=== PATIENT | female | born 1985 | race Caucasian/White ===

== ENCOUNTER 2017-11-28 14:12 | Emergency (ER) | payer OTHER, MEDICAID, SELFPAY ==
[2017-11-28 14:12] VITALS: BP 135/100; PULSE 77; RESP 18; TEMP 36.3; O2SAT 97; BMI 34.0
--- NOTE | 2017-11-28 14:34 | ED.ABDPAIN ---
HPI - Abdominal Pain <SUSANA Lawson - Last Filed: 11/28/17 22:08> General Chief Complaint: Abdominal Pain Stated Complaint: ABDOMINAL PAIN Time Seen by Provider: 11/28/17 14:34 History of Present Illness HPI narrative: 32-year-old female here for complaint of having epigastric pain that started since last night. She has a history of cholecystectomy. She denies any trauma to the epigastric area. She states she had 2 episodes of vomiting last night positive nausea today. No fevers no chills. She denies any urinary symptoms. Last bowel movement was earlier today and was normal. Pain is limited to the epigastric area. She denies any other concerns or complaints. She does state that eating has made the pain worse. MD complaint: abdominal pain Related Data Home Medications Medication Instructions Recorded Confirmed venlafaxine 225 mg PO QDAY #0 12/01/16 11/28/17 doxepin 25 mg PO HSP #0 09/01/17 11/28/17 levothyroxine 25 mcg PO QAM #0 09/01/17 11/28/17 oxcarbazepine 300 mg PO BID #0 09/01/17 11/28/17 quetiapine [Seroquel] 100 mg PO DAILY 11/28/17 11/28/17 Previous Rx's Medication Instructions Recorded ciprofloxacin HCl 500 mg PO BID #14 tab 11/28/17 hydrocodone-acetaminophen 1 tab PO Q4-6H PRN #10 tab 11/28/17 metronidazole 250 mg PO TID #21 tab 11/28/17 ondansetron 4 mg PO Q6H PRN #10 tab 11/28/17 Allergies Allergy/AdvReac Type Severity Reaction Status Date / Time Penicillins [PENICILLINS] Allergy Unknown Verified 11/28/17 14:35 lorazepam [From ATIVAN] AdvReac Unknown AGITATION Verified 11/28/17 14:35 Review of Systems <SUSANA Lawson - Last Filed: 11/28/17 22:08> Constitutional Denies chills, Denies fever(s), Denies lethargy and Denies weakness Eyes Denies change in vision, Denies eye discharge, Denies irritation and Denies loss of vision ENT Ears, Nose, Mouth, and Throat: Denies change in voice, Denies neck pain and Denies sore throat Cardiovascular Denies chest pain, Denies irregular heart rhythm, Denies lightheadedness, Denies palpitations, Denies dyspnea, Denies dyspnea on exertion and Denies orthopnea Respiratory Denies cough, Denies dyspnea, Denies dyspnea on exertion and Denies wheezing Gastrointestinal Gastrointestinal: Reports abdominal pain and Reports nausea Genitourinary Denies hematuria, Denies flank pain, Denies urinary incontinence and Denies urinary urgency Musculoskeletal Denies neck pain Integumentary/Breasts Denies pruritus, Denies erythema, Denies rash and Denies wounds Neurologic Denies confusion, Denies loss of vision and Denies weakness Psychiatric Denies anxiety, Denies confusion, Denies depression, Denies homicidal ideation and Denies suicidal ideation Endocrine Denies palpitations Allergic/Immunologic Denies wheezing Exam <SUSANA Lawson - Last Filed: 11/28/17 22:08> Initial Vital Signs Initial Vital Signs: Vital Signs Temperature 97.4 F L 11/28/17 14:12 Pulse Rate 77 11/28/17 14:12 Respiratory Rate 18 11/28/17 14:12 Blood Pressure 135/100 H 11/28/17 14:12 Pulse Oximetry 97 11/28/17 14:12 Const General: cooperative and well developed Nutritional Appearance: well nourished Orientation: alert, awake, oriented x3 and not confused [facility] Mouth: oral mucosae normal and moist mucous membranes Eyes Conjunctivae: conjunctivae normal Sclera: sclerae normal Pupils: PERRL EOM: EOM intact bilaterally Resp Effort & Inspection: normal respiratory effort, able to speak in complete sentences, no respiratory distress and no use of accessory muscles Auscultation: clear to auscultation bilaterally, no rales, no rhonchi and no wheezes Cardio Rate: regular rate Rhythm: regular rhythm Heart Sounds: no click, no gallops, no murmurs and no rubs Pulses: normal peripheral pulses GI Inspection: non-distended Palpation: soft, no hepatosplenomegaly, No guarding, No pulsatile mass and tender (Tender epigastric area) Auscultation: normal bowel sounds General: No CVA tenderness Skin General: no rashes or lesions noted, No jaundice and No petechiae <Leander Mcpherson DO - Last Filed: 11/30/17 20:26> Initial Vital Signs Initial Vital Signs: Vital Signs Temperature 97.4 F L 11/28/17 14:12 Pulse Rate 77 11/28/17 14:12 Respiratory Rate 18 11/28/17 14:12 Blood Pressure 135/100 H 11/28/17 14:12 Pulse Oximetry 97 11/28/17 14:12 Course <SUSANA Lawson - Last Filed: 11/28/17 22:08> Orders Ordered: Discontinued Medications Hydromorphone HCl (Dilaudid) 0.5 mg IV NOW ONE Stop: 11/28/17 14:42 Last Admin: 11/28/17 15:05 Dose: 0.5 mg Hydromorphone HCl (Dilaudid) 0.5 mg IV NOW ONE Stop: 11/28/17 17:34 Last Admin: 11/28/17 17:38 Dose: 0.5 mg Sodium Chloride (Normal Saline 0.9%) 1,000 mls @ 1,000 mls/hr IV BOLUS ONE Stop: 11/28/17 15:40 Last Infusion: 11/28/17 17:04 Dose: 0 mls/hr Admin: 11/28/17 15:06 Dose: 1,000 mls/hr Ondansetron HCl (Zofran) 4 mg IV NOW ONE Stop: 11/28/17 14:42 Last Admin: 11/28/17 15:06 Dose: 4 mg Vital Signs - 8 hr 11/28/17 14:12 11/28/17 15:11 11/28/17 17:00 Temperature 97.4 F L Pulse Rate 77 72 78 Respiratory Rate 18 14 14 Blood Pressure 135/100 H Blood Pressure [Left Arm] 119/71 127/74 H Pulse Oximetry 97 96 94 11/28/17 18:14 Temperature 98.3 F Pulse Rate 72 Respiratory Rate Blood Pressure Blood Pressure [Left Arm] 132/83 H Pulse Oximetry 96 <Leander Mcpherson DO - Last Filed: 11/30/17 20:26> Orders Ordered: Discontinued Medications Hydromorphone HCl (Dilaudid) 0.5 mg IV NOW ONE Stop: 11/28/17 14:42 Last Admin: 11/28/17 15:05 Dose: 0.5 mg Hydromorphone HCl (Dilaudid) 0.5 mg IV NOW ONE Stop: 11/28/17 17:34 Last Admin: 11/28/17 17:38 Dose: 0.5 mg Sodium Chloride (Normal Saline 0.9%) 1,000 mls @ 1,000 mls/hr IV BOLUS ONE Stop: 11/28/17 15:40 Last Infusion: 11/28/17 17:04 Dose: 0 mls/hr Admin: 11/28/17 15:06 Dose: 1,000 mls/hr Ondansetron HCl (Zofran) 4 mg IV NOW ONE Stop: 11/28/17 14:42 Last Admin: 11/28/17 15:06 Dose: 4 mg Vital Signs - 8 hr 11/28/17 14:12 11/28/17 15:11 11/28/17 17:00 Temperature 97.4 F L Pulse Rate 77 72 78 Respiratory Rate 18 14 14 Blood Pressure 135/100 H Blood Pressure [Left Arm] 119/71 127/74 H Pulse Oximetry 97 96 94 11/28/17 18:14 Temperature 98.3 F Pulse Rate 72 Respiratory Rate Blood Pressure Blood Pressure [Left Arm] 132/83 H Pulse Oximetry 96 MDM - Abdominal Pain <SUSANA Lawson - Last Filed: 11/28/17 22:08> Lab Data Result diagrams: 11/28/17 15:00 11/28/17 15:00 Lab Results 11/28/17 11/28/17 11/28/17 Range/Units 15:00 15:00 15:40 WBC 11.0 (4.5-11.0) X10^3/uL RBC 4.65 (4.0-5.2) X10^6/uL Hgb 16.0 (12.0-16.0) g/dL Hct 45.2 (36-46) % MCV 97.1 (80-100) fL MCH 34.3 H (26-34) PG MCHC 35.4 (30-36) % RDW 12.9 (11.6-14.8) % Plt Count 284 (150-400) X10^3/uL Neut % (Auto) 47.5 L (50-75) % Lymph % (Auto) 38.0 (25-40) % [place] % (Auto) 12.1 (3-14) % Eos % (Auto) 1.4 L (2-4) % Baso % (Auto) 1.0 (0-2) % Neut # (Auto) 5300 (1639-3080) /uL Sodium 138 (137-145) mmol/L Potassium 3.7 (3.4-5.1) mmol/L Chloride 103 (98-107) mmol/L Carbon Dioxide 21 L (22-32) mmol/L BUN 13 (7-17) mg/dL Creatinine 0.60 (0.52-1.04) mg/dL Estimated GFR > 60.0 (>60) mL/min BUN/Creatinine Ratio 21.7 (6-22) Glucose 87 (70-100) mg/dL Calcium 9.6 (8.4-10.2) mg/dL Total Bilirubin 0.6 (0.2-1.3) mg/dL AST 37 H (14-36) IU/L ALT 48 (9-52) IU/L Alkaline Phosphatase 78 (38-126) U/L Total Protein 7.7 (6.3-8.2) g/dL Albumin 4.5 (3.5-5.0) g/dL Globulin 3.2 (1.7-4.1) g/dL Albumin/Globulin Ratio 1.4 (1.0-2.8) Lipase 175 (23-300) U/L Urine RBC 10-30/hpf H (0-5/HPF) Urine WBC 5-10/hpf H (0-5/HPF) Urine Bacteria Many (>30) H (None) Urine Mucus 2+ H (Negative) Ur Culture Indicated? Specimen cultured Micro UA Comment Not Reportable Imaging Data CT scan - abdomen: Radiologist's impression: Patient: Edith Rm MR#: [id number] : 1985 Acct:[id number] Age/Sex: 32 / F Date of Service: 11/28/17 Loc: ED Accession Number: [id number] Procedure: CT abdomen pelvis w con Ordering Provider: Rommel Kuhn PROCEDURE: CT ABDOMEN PELVIS W CON INDICATIONS: Upper abdominal pain epigastric radiating down to umbilical TECHNIQUE: After the administration of intravenous contrast, 5 mm thick sections acquired from the diaphragm to the symphysis. 5 mm coronal and sagittal reformats were acquired. For radiation dose reduction, the following was used: automated exposure control, adjustment of mA and/or kV according to patient size. COMPARISON: [facility], CT, ABDOMEN/PELVIS WITH CONTRAST, 05/30/2017, 22:33. FINDINGS: Image quality: Excellent. ABDOMEN: Lung bases: Lung bases are clear the 8mm calcified granuloma in the right lower lobe is unchanged.. Heart size is normal. Solid organs: Liver is normal in size and again shows diffuse fatty infiltration. Gallbladder is surgically absent. Biliary system is non dilated. Pancreas enhances normally. Spleen is normal in size and enhancement. No adrenal nodules. Kidneys demonstrate normal size and enhancement, without hydronephrosis. 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 Peritoneum and bowel: Small bowel loops demonstrate normal wall thickness and caliber. Normal appendix. There is mild wall thickening in the descending colon with minimal pericolic fat stranding, raising possibility of colitis. On series 2/image 55, there is also a low density, exophytic mass compatible with appendagitis epiploica. No free fluid or air. Nodes and vessels: No retroperitoneal or mesenteric adenopathy by size criteria. Aorta and inferior vena cava are normal in size. Miscellaneous: No ventral hernias. PELVIS: Genitourinary: Bladder wall thickness is normal. Normal appearing appendix and IUD Miscellaneous: No inguinal hernias or adenopathy. Bones: No suspicious bony lesions. No vertebral body compression fractures. IMPRESSION: 1. Mild degree of wall thickening in the proximal and distal portion of the descending colon which could represent mild colitis. There is also suggestion of appendagitis epiploica at that level. 2. Status post cholecystectomy. 3. Hepatic steatosis. 4. Stable 8mm calcified nodule in the right lower lobe compatible with old granuloma. 5. IUD is unremarkable. Dictated by: Jerry Haro M.D. on 11/28/2017 at 16:52 Approved by: Jerry Haro M.D. on 11/28/2017 at 17:04 [facility] Narrative Medical decision making narrative: CBC and CMP were obtained were unremarkable. Lipase was obtained and was also unremarkable. CT scan of the abdomen shows signs of descending colon wall thickness and mild fat stranding will treat for colitis with ciprofloxacin and metronidazole. CT also shows signs for epiploic appendagitis. Urinalysis RBCs and WBCs ciprofloxacin as well to cover for urinary tract infection. Zofran is prescribed to help with nausea. Over the the counter ibuprofen as needed for any discomfort. [place] is prescribed for breakthrough pain. Diflucan prescribed to prophylactically treat for yeast infection. Follow up with primary care provider in the next couple of days for re-evaluation. For any worsening symptoms return to the emergency room. <Leander Mcpherson DO - Last Filed: 11/30/17 20:26> Lab Data Lab Results 11/28/17 11/28/17 11/28/17 Range/Units 15:00 15:00 15:40 WBC 11.0 (4.5-11.0) X10^3/uL RBC 4.65 (4.0-5.2) X10^6/uL Hgb 16.0 (12.0-16.0) g/dL Hct 45.2 (36-46) % MCV 97.1 (80-100) fL MCH 34.3 H (26-34) PG MCHC 35.4 (30-36) % RDW 12.9 (11.6-14.8) % Plt Count 284 (150-400) X10^3/uL Neut % (Auto) 47.5 L (50-75) % Lymph % (Auto) 38.0 (25-40) % [place] % (Auto) 12.1 (3-14) % Eos % (Auto) 1.4 L (2-4) % Baso % (Auto) 1.0 (0-2) % Neut # (Auto) 5300 (9285-9550) /uL Sodium 138 (137-145) mmol/L Potassium 3.7 (3.4-5.1) mmol/L Chloride 103 (98-107) mmol/L Carbon Dioxide 21 L (22-32) mmol/L BUN 13 (7-17) mg/dL Creatinine 0.60 (0.52-1.04) mg/dL Estimated GFR > 60.0 (>60) mL/min BUN/Creatinine Ratio 21.7 (6-22) Glucose 87 (70-100) mg/dL Calcium 9.6 (8.4-10.2) mg/dL Total Bilirubin 0.6 (0.2-1.3) mg/dL AST 37 H (14-36) IU/L ALT 48 (9-52) IU/L Alkaline Phosphatase 78 (38-126) U/L Total Protein 7.7 (6.3-8.2) g/dL Albumin 4.5 (3.5-5.0) g/dL Globulin 3.2 (1.7-4.1) g/dL Albumin/Globulin Ratio 1.4 (1.0-2.8) Lipase 175 (23-300) U/L Urine RBC 10-30/hpf H (0-5/HPF) Urine WBC 5-10/hpf H (0-5/HPF) Urine Bacteria Many (>30) H (None) Urine Mucus 2+ H (Negative) Ur Culture Indicated? Specimen cultured Micro UA Comment Not Reportable Discharge Plan Departure Patient Disposition: Home, Self-Care Clinical Impression: Colitis, UTI (urinary tract infection) Discharge Date/Time: 11/28/17 18:31 Interventions: ED Discharge Assessment Last Done: 11/28/17 18:32 Instructions: DI for Colitis Activity Restrictions/Additional Instructions: Urinalysis shows signs of urinary tract infection otherwise laboratory results were unremarkable. CT of the abdomen shows signs consistent with colitis and also epiploic appendagitis. Antibiotics are prescribed to treat the colitis. Use as directed. Ciprofloxacin is prescribed that will treat both the colitis and also the urinary tract infection. one other antibiotic called metronidazole as prescribed to help with the colitis. Epiploic appendagitis is typically a benign condition resolves on its own however does need to be monitored. Use [id number] Tylenol ibuprofen as needed for distal comfort. Small amount of [place] is prescribed for breakthrough pain use as directed. Zofran is prescribed help with nausea. Diflucan is prescribed to help prevent yeast infection. Follow up with her primary care provider in the next few days for re-evaluation. For any worsening symptoms return to the emergency room. Prescriptions: New hydrocodone-acetaminophen 5-325 mg tablet 1 tab PO Q4-6H PRN (Reason: pain) Qty: 10 RF: 0 metronidazole 500 mg tablet 250 mg PO TID Qty: 21 RF: 0 ciprofloxacin HCl 500 mg tablet 500 mg PO BID Qty: 14 RF: 0 ondansetron 4 mg tablet,disintegrating 4 mg PO Q6H PRN (Reason: nausea) Qty: 10 RF: 0 No Action venlafaxine 225 MG tablet extended release 24hr 225 mg PO QDAY Qty: 0 RF: 0 doxepin 50 MG capsule 25 mg PO HSP Qty: 0 RF: 0 oxcarbazepine 300 MG tablet 300 mg PO BID Qty: 0 RF: 0 levothyroxine 25 MCG tablet 25 mcg PO QAM Qty: 0 RF: 0 quetiapine [Seroquel] 100 mg Tablet 100 mg PO DAILY RF: 0 Referrals: [facility] [Provider Group] <Leander Mcpherson DO - Last Filed: 11/30/17 20:26> Cosign ED Attending Gabriela Attestation: I was immediately available in the department for consultation. Documentation has been reviewed. I agree with assessment and plan.
--- NOTE | 2017-11-28 14:42 | DI.CT.S_ITS ---
PROCEDURE: CT ABDOMEN PELVIS W CON INDICATIONS: Upper abdominal pain epigastric radiating down to umbilical TECHNIQUE: After the administration of intravenous contrast, 5 mm thick sections acquired from the diaphragm to the symphysis. 5 mm coronal and sagittal reformats were acquired. For radiation dose reduction, the following was used: automated exposure control, adjustment of mA and/or kV according to patient size. COMPARISON: [facility], CT, ABDOMEN/PELVIS WITH CONTRAST, 05/30/2017, 22:33. FINDINGS: Image quality: Excellent. ABDOMEN: Lung bases: Lung bases are clear the 8mm calcified granuloma in the right lower lobe is unchanged.. Heart size is normal. Solid organs: Liver is normal in size and again shows diffuse fatty infiltration. Gallbladder is surgically absent. Biliary system is non dilated. Pancreas enhances normally. Spleen is normal in size and enhancement. No adrenal nodules. Kidneys demonstrate normal size and enhancement, without hydronephrosis. 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 Peritoneum and bowel: Small bowel loops demonstrate normal wall thickness and caliber. Normal appendix. There is mild wall thickening in the descending colon with minimal pericolic fat stranding, raising possibility of colitis. On series 2/image 55, there is also a low density, exophytic mass compatible with appendagitis epiploica. No free fluid or air. Nodes and vessels: No retroperitoneal or mesenteric adenopathy by size criteria. Aorta and inferior vena cava are normal in size. Miscellaneous: No ventral hernias. PELVIS: Genitourinary: Bladder wall thickness is normal. Normal appearing appendix and IUD Miscellaneous: No inguinal hernias or adenopathy. Bones: No suspicious bony lesions. No vertebral body compression fractures. IMPRESSION: 1. Mild degree of wall thickening in the proximal and distal portion of the descending colon which could represent mild colitis. There is also suggestion of appendagitis epiploica at that level. 2. Status post cholecystectomy. 3. Hepatic steatosis. 4. Stable 8mm calcified nodule in the right lower lobe compatible with old granuloma. 5. IUD is unremarkable. Dictated by: Jerry Haro M.D. on 11/28/2017 at 16:52 Approved by: Jerry Haro M.D. on 11/28/2017 at 17:04
[2017-11-28] MEDS: HYDROMORPHONE 1 MG INJ 0.5 MG IV (15:05)
[2017-11-28] MEDS: ONDANSETRON 4 MG/2 ML INJ IV (15:06)
[2017-11-28] MEDS: SODIUM CHLORIDE 0.9% 1,000 ML 1000 ML IV (15:06)
[2017-11-28 15:07] LABS: Add Manual Diff / Slide Review NO; Eosinophils Percent Auto 1.4 % (2-4); Hematocrit 45.2 % (36-46); Mean Corpuscular HGB Conc 35.4 % (30-36); Mean Corpuscular Hemoglobin 34.3 PG (26-34); Mean Corpuscular Volume 97.1 fL (80-100); Monocytes Percent Auto 12.1 % (3-14); Neutrophils Absolute Auto 5300 /uL (3000-5900); Neutrophils Percent Auto 47.5 % (50-75); Platelet Count 284 X10^3/uL (150-400); Red Blood Cell Count 4.65 X10^6/uL (4.0-5.2); Red Cell Distribution Width 12.9 % (11.6-14.8)
[2017-11-28 15:11] VITALS: BP 119/71; PULSE 72; RESP 14; O2SAT 96
[2017-11-28 15:25] LABS: Alanine Aminotransferase 48 IU/L (9-52); Albumin 4.5 g/dL (3.5-5.0); Albumin Globulin Ratio 1.4 (1.0-2.8); Alkaline Phosphatase 78 U/L (38-126); Aspartate Aminotransferase 37 IU/L (14-36); BUN Creatinine Ratio 21.7 (6-22); Bilirubin Total 0.6 mg/dL (0.2-1.3); Blood Urea Nitrogen 13 mg/dL (7-17); Calcium 9.6 mg/dL (8.4-10.2); Carbon Dioxide 21 mmol/L (22-32); Chloride 103 mmol/L (98-107); Estimated Glomerular Filt Rate > 60.0 mL/min (>60); Globulin 3.2 g/dL (1.7-4.1); Glucose 87 mg/dL (70-100); HEMOLYSIS 16 (0-50); Lipase 175 U/L (23-300); Potassium 3.7 mmol/L (3.4-5.1); Sodium 138 mmol/L (137-145); Total Protein 7.7 g/dL (6.3-8.2)
[2017-11-28 16:19] LABS: RBC Urine 10-30/HPF (0-5/HPF)
[2017-11-28 16:20] LABS: Bacteria Urine Many (>30); Culture Indicated Urine Specimen Cultured; Mucus Urine 2+ (Negative); WBC Urine 5-10/HPF (0-5/HPF)
--- NOTE | 2017-11-28 16:58 | ED_ITS ---
HPI - Abdominal Pain <SUSANA Lawson - Last Filed: 11/28/17 22:08> General Chief Complaint: Abdominal Pain Stated Complaint: ABDOMINAL PAIN Time Seen by Provider: 11/28/17 14:34 History of Present Illness HPI narrative: 32-year-old female here for complaint of having epigastric pain that started since last night. She has a history of cholecystectomy. She denies any trauma to the epigastric area. She states she had 2 episodes of vomiting last night positive nausea today. No fevers no chills. She denies any urinary symptoms. Last bowel movement was earlier today and was normal. Pain is limited to the epigastric area. She denies any other concerns or complaints. She does state that eating has made the pain worse. MD complaint: abdominal pain Related Data Home Medications Medication Instructions Recorded Confirmed venlafaxine 225 mg PO QDAY #0 12/01/16 11/28/17 doxepin 25 mg PO HSP #0 09/01/17 11/28/17 levothyroxine 25 mcg PO QAM #0 09/01/17 11/28/17 oxcarbazepine 300 mg PO BID #0 09/01/17 11/28/17 quetiapine [Seroquel] 100 mg PO DAILY 11/28/17 11/28/17 Previous Rx's Medication Instructions Recorded ciprofloxacin HCl 500 mg PO BID #14 tab 11/28/17 hydrocodone-acetaminophen 1 tab PO Q4-6H PRN #10 tab 11/28/17 metronidazole 250 mg PO TID #21 tab 11/28/17 ondansetron 4 mg PO Q6H PRN #10 tab 11/28/17 Allergies Allergy/AdvReac Type Severity Reaction Status Date / Time Penicillins [PENICILLINS] Allergy Unknown Verified 11/28/17 14:35 lorazepam [From ATIVAN] AdvReac Unknown AGITATION Verified 11/28/17 14:35 Review of Systems <SUSANA Lawson - Last Filed: 11/28/17 22:08> Constitutional Denies chills, Denies fever(s), Denies lethargy and Denies weakness Eyes Denies change in vision, Denies eye discharge, Denies irritation and Denies loss of vision ENT Ears, Nose, Mouth, and Throat: Denies change in voice, Denies neck pain and Denies sore throat Cardiovascular Denies chest pain, Denies irregular heart rhythm, Denies lightheadedness, Denies palpitations, Denies dyspnea, Denies dyspnea on exertion and Denies orthopnea Respiratory Denies cough, Denies dyspnea, Denies dyspnea on exertion and Denies wheezing Gastrointestinal Gastrointestinal: Reports abdominal pain and Reports nausea Genitourinary Denies hematuria, Denies flank pain, Denies urinary incontinence and Denies urinary urgency Musculoskeletal Denies neck pain Integumentary/Breasts Denies pruritus, Denies erythema, Denies rash and Denies wounds Neurologic Denies confusion, Denies loss of vision and Denies weakness Psychiatric Denies anxiety, Denies confusion, Denies depression, Denies homicidal ideation and Denies suicidal ideation Endocrine Denies palpitations Allergic/Immunologic Denies wheezing Exam <SUSANA Lawson - Last Filed: 11/28/17 22:08> Initial Vital Signs Initial Vital Signs: Vital Signs Temperature 97.4 F L 11/28/17 14:12 Pulse Rate 77 11/28/17 14:12 Respiratory Rate 18 11/28/17 14:12 Blood Pressure 135/100 H 11/28/17 14:12 Pulse Oximetry 97 11/28/17 14:12 Const General: cooperative and well developed Nutritional Appearance: well nourished Orientation: alert, awake, oriented x3 and not confused [facility] Mouth: oral mucosae normal and moist mucous membranes Eyes Conjunctivae: conjunctivae normal Sclera: sclerae normal Pupils: PERRL EOM: EOM intact bilaterally Resp Effort & Inspection: normal respiratory effort, able to speak in complete sentences, no respiratory distress and no use of accessory muscles Auscultation: clear to auscultation bilaterally, no rales, no rhonchi and no wheezes Cardio Rate: regular rate Rhythm: regular rhythm Heart Sounds: no click, no gallops, no murmurs and no rubs Pulses: normal peripheral pulses GI Inspection: non-distended Palpation: soft, no hepatosplenomegaly, No guarding, No pulsatile mass and tender (Tender epigastric area) Auscultation: normal bowel sounds General: No CVA tenderness Skin General: no rashes or lesions noted, No jaundice and No petechiae <Leander Mcpherson DO - Last Filed: 11/30/17 20:26> Initial Vital Signs Initial Vital Signs: Vital Signs Temperature 97.4 F L 11/28/17 14:12 Pulse Rate 77 11/28/17 14:12 Respiratory Rate 18 11/28/17 14:12 Blood Pressure 135/100 H 11/28/17 14:12 Pulse Oximetry 97 11/28/17 14:12 Course <SUSANA Lawson - Last Filed: 11/28/17 22:08> Orders Ordered: Discontinued Medications Hydromorphone HCl (Dilaudid) 0.5 mg IV NOW ONE Stop: 11/28/17 14:42 Last Admin: 11/28/17 15:05 Dose: 0.5 mg Hydromorphone HCl (Dilaudid) 0.5 mg IV NOW ONE Stop: 11/28/17 17:34 Last Admin: 11/28/17 17:38 Dose: 0.5 mg Sodium Chloride (Normal Saline 0.9%) 1,000 mls @ 1,000 mls/hr IV BOLUS ONE Stop: 11/28/17 15:40 Last Infusion: 11/28/17 17:04 Dose: 0 mls/hr Admin: 11/28/17 15:06 Dose: 1,000 mls/hr Ondansetron HCl (Zofran) 4 mg IV NOW ONE Stop: 11/28/17 14:42 Last Admin: 11/28/17 15:06 Dose: 4 mg Vital Signs - 8 hr 11/28/17 14:12 11/28/17 15:11 11/28/17 17:00 Temperature 97.4 F L Pulse Rate 77 72 78 Respiratory Rate 18 14 14 Blood Pressure 135/100 H Blood Pressure [Left Arm] 119/71 127/74 H Pulse Oximetry 97 96 94 11/28/17 18:14 Temperature 98.3 F Pulse Rate 72 Respiratory Rate Blood Pressure Blood Pressure [Left Arm] 132/83 H Pulse Oximetry 96 <Leander Mcpherson DO - Last Filed: 11/30/17 20:26> Orders Ordered: Discontinued Medications Hydromorphone HCl (Dilaudid) 0.5 mg IV NOW ONE Stop: 11/28/17 14:42 Last Admin: 11/28/17 15:05 Dose: 0.5 mg Hydromorphone HCl (Dilaudid) 0.5 mg IV NOW ONE Stop: 11/28/17 17:34 Last Admin: 11/28/17 17:38 Dose: 0.5 mg Sodium Chloride (Normal Saline 0.9%) 1,000 mls @ 1,000 mls/hr IV BOLUS ONE Stop: 11/28/17 15:40 Last Infusion: 11/28/17 17:04 Dose: 0 mls/hr Admin: 11/28/17 15:06 Dose: 1,000 mls/hr Ondansetron HCl (Zofran) 4 mg IV NOW ONE Stop: 11/28/17 14:42 Last Admin: 11/28/17 15:06 Dose: 4 mg Vital Signs - 8 hr 11/28/17 14:12 11/28/17 15:11 11/28/17 17:00 Temperature 97.4 F L Pulse Rate 77 72 78 Respiratory Rate 18 14 14 Blood Pressure 135/100 H Blood Pressure [Left Arm] 119/71 127/74 H Pulse Oximetry 97 96 94 11/28/17 18:14 Temperature 98.3 F Pulse Rate 72 Respiratory Rate Blood Pressure Blood Pressure [Left Arm] 132/83 H Pulse Oximetry 96 MDM - Abdominal Pain <SUSANA Lawson - Last Filed: 11/28/17 22:08> Lab Data Result diagrams: 11/28/17 15:00 11/28/17 15:00 Lab Results 11/28/17 11/28/17 11/28/17 Range/Units 15:00 15:00 15:40 WBC 11.0 (4.5-11.0) X10^3/uL RBC 4.65 (4.0-5.2) X10^6/uL Hgb 16.0 (12.0-16.0) g/dL Hct 45.2 (36-46) % MCV 97.1 (80-100) fL MCH 34.3 H (26-34) PG MCHC 35.4 (30-36) % RDW 12.9 (11.6-14.8) % Plt Count 284 (150-400) X10^3/uL Neut % (Auto) 47.5 L (50-75) % Lymph % (Auto) 38.0 (25-40) % Stanley % (Auto) 12.1 (3-14) % Eos % (Auto) 1.4 L (2-4) % Baso % (Auto) 1.0 (0-2) % Neut # (Auto) 5300 (8247-5728) /uL Sodium 138 (137-145) mmol/L Potassium 3.7 (3.4-5.1) mmol/L Chloride 103 (98-107) mmol/L Carbon Dioxide 21 L (22-32) mmol/L BUN 13 (7-17) mg/dL Creatinine 0.60 (0.52-1.04) mg/dL Estimated GFR > 60.0 (>60) mL/min BUN/Creatinine Ratio 21.7 (6-22) Glucose 87 (70-100) mg/dL Calcium 9.6 (8.4-10.2) mg/dL Total Bilirubin 0.6 (0.2-1.3) mg/dL AST 37 H (14-36) IU/L ALT 48 (9-52) IU/L Alkaline Phosphatase 78 (38-126) U/L Total Protein 7.7 (6.3-8.2) g/dL Albumin 4.5 (3.5-5.0) g/dL Globulin 3.2 (1.7-4.1) g/dL Albumin/Globulin Ratio 1.4 (1.0-2.8) Lipase 175 (23-300) U/L Urine RBC 10-30/hpf H (0-5/HPF) Urine WBC 5-10/hpf H (0-5/HPF) Urine Bacteria Many (>30) H (None) Urine Mucus 2+ H (Negative) Ur Culture Indicated? Specimen cultured Micro UA Comment Not Reportable Imaging Data CT scan - abdomen: Radiologist's impression: Patient: Edith Rm MR#: [id number] : 1985 Acct:[id number] Age/Sex: 32 / F Date of Service: 11/28/17 Loc: ED Accession Number: [id number] Procedure: CT abdomen pelvis w con Ordering Provider: Rommel Kuhn PROCEDURE: CT ABDOMEN PELVIS W CON INDICATIONS: Upper abdominal pain epigastric radiating down to umbilical TECHNIQUE: After the administration of intravenous contrast, 5 mm thick sections acquired from the diaphragm to the symphysis. 5 mm coronal and sagittal reformats were acquired. For radiation dose reduction, the following was used: automated exposure control, adjustment of mA and/or kV according to patient size. COMPARISON: [facility], CT, ABDOMEN/PELVIS WITH CONTRAST, 05/30/2017, 22: 33. FINDINGS: Image quality: Excellent. ABDOMEN: Lung bases: Lung bases are clear the 8mm calcified granuloma in the right lower lobe is unchanged.. Heart size is normal. Solid organs: Liver is normal in size and again shows diffuse fatty infiltration. Gallbladder is surgically absent. Biliary system is non dilated. Pancreas enhances normally. Spleen is normal in size and enhancement. No adrenal nodules. Kidneys demonstrate normal size and enhancement, without hydronephrosis. 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 Peritoneum and bowel: Small bowel loops demonstrate normal wall thickness and caliber. Normal appendix. There is mild wall thickening in the descending colon with minimal pericolic fat stranding, raising possibility of colitis. On series 2/image 55, there is also a low density, exophytic mass compatible with appendagitis epiploica. No free fluid or air. Nodes and vessels: No retroperitoneal or mesenteric adenopathy by size criteria. Aorta and inferior vena cava are normal in size. Miscellaneous: No ventral hernias. PELVIS: Genitourinary: Bladder wall thickness is normal. Normal appearing appendix and IUD Miscellaneous: No inguinal hernias or adenopathy. Bones: No suspicious bony lesions. No vertebral body compression fractures. IMPRESSION: 1. Mild degree of wall thickening in the proximal and distal portion of the descending colon which could represent mild colitis. There is also suggestion of appendagitis epiploica at that level. 2. Status post cholecystectomy. 3. Hepatic steatosis. 4. Stable 8mm calcified nodule in the right lower lobe compatible with old granuloma. 5. IUD is unremarkable. Dictated by: Jerry Haro M.D. on 11/28/2017 at 16:52 Approved by: Jerry Haro M.D. on 11/28/2017 at 17:04 [facility] Narrative Medical decision making narrative: CBC and CMP were obtained were unremarkable. Lipase was obtained and was also unremarkable. CT scan of the abdomen shows signs of descending colon wall thickness and mild fat stranding will treat for colitis with ciprofloxacin and metronidazole. CT also shows signs for epiploic appendagitis. Urinalysis RBCs and WBCs ciprofloxacin as well to cover for urinary tract infection. Zofran is prescribed to help with nausea. Over the the counter ibuprofen as needed for any discomfort. [place] is prescribed for breakthrough pain. Diflucan prescribed to prophylactically treat for yeast infection. Follow up with primary care provider in the next couple of days for re-evaluation. For any worsening symptoms return to the emergency room. <Leander Mcpherson DO - Last Filed: 11/30/17 20:26> Lab Data Lab Results 11/28/17 11/28/17 11/28/17 Range/Units 15:00 15:00 15:40 WBC 11.0 (4.5-11.0) X10^3/uL RBC 4.65 (4.0-5.2) X10^6/uL Hgb 16.0 (12.0-16.0) g/dL Hct 45.2 (36-46) % MCV 97.1 (80-100) fL MCH 34.3 H (26-34) PG MCHC 35.4 (30-36) % RDW 12.9 (11.6-14.8) % Plt Count 284 (150-400) X10^3/uL Neut % (Auto) 47.5 L (50-75) % Lymph % (Auto) 38.0 (25-40) % Stanley % (Auto) 12.1 (3-14) % Eos % (Auto) 1.4 L (2-4) % Baso % (Auto) 1.0 (0-2) % Neut # (Auto) 5300 (3267-1922) /uL Sodium 138 (137-145) mmol/L Potassium 3.7 (3.4-5.1) mmol/L Chloride 103 (98-107) mmol/L Carbon Dioxide 21 L (22-32) mmol/L BUN 13 (7-17) mg/dL Creatinine 0.60 (0.52-1.04) mg/dL Estimated GFR > 60.0 (>60) mL/min BUN/Creatinine Ratio 21.7 (6-22) Glucose 87 (70-100) mg/dL Calcium 9.6 (8.4-10.2) mg/dL Total Bilirubin 0.6 (0.2-1.3) mg/dL AST 37 H (14-36) IU/L ALT 48 (9-52) IU/L Alkaline Phosphatase 78 (38-126) U/L Total Protein 7.7 (6.3-8.2) g/dL Albumin 4.5 (3.5-5.0) g/dL Globulin 3.2 (1.7-4.1) g/dL Albumin/Globulin Ratio 1.4 (1.0-2.8) Lipase 175 (23-300) U/L Urine RBC 10-30/hpf H (0-5/HPF) Urine WBC 5-10/hpf H (0-5/HPF) Urine Bacteria Many (>30) H (None) Urine Mucus 2+ H (Negative) Ur Culture Indicated? Specimen cultured Micro UA Comment Not Reportable Discharge Plan Departure Patient Disposition: Home, Self-Care Clinical Impression: Colitis, UTI (urinary tract infection) Discharge Date/Time: 11/28/17 18:31 Interventions: ED Discharge Assessment Last Done: 11/28/17 18:32 Instructions: DI for Colitis Activity Restrictions/Additional Instructions: Urinalysis shows signs of urinary tract infection otherwise laboratory results were unremarkable. CT of the abdomen shows signs consistent with colitis and also epiploic appendagitis. Antibiotics are prescribed to treat the colitis. Use as directed. Ciprofloxacin is prescribed that will treat both the colitis and also the urinary tract infection. one other antibiotic called metronidazole as prescribed to help with the colitis. Epiploic appendagitis is typically a benign condition resolves on its own however does need to be monitored. Use [id number] Tylenol ibuprofen as needed for distal comfort. Small amount of [place] is prescribed for breakthrough pain use as directed. Zofran is prescribed help with nausea. Diflucan is prescribed to help prevent yeast infection. Follow up with her primary care provider in the next few days for re-evaluation. For any worsening symptoms return to the emergency room. Prescriptions: New hydrocodone-acetaminophen 5-325 mg tablet 1 tab PO Q4-6H PRN (Reason: pain) Qty: 10 RF: 0 metronidazole 500 mg tablet 250 mg PO TID Qty: 21 RF: 0 ciprofloxacin HCl 500 mg tablet 500 mg PO BID Qty: 14 RF: 0 ondansetron 4 mg tablet,disintegrating 4 mg PO Q6H PRN (Reason: nausea) Qty: 10 RF: 0 No Action venlafaxine 225 MG tablet extended release 24hr 225 mg PO QDAY Qty: 0 RF: 0 doxepin 50 MG capsule 25 mg PO HSP Qty: 0 RF: 0 oxcarbazepine 300 MG tablet 300 mg PO BID Qty: 0 RF: 0 levothyroxine 25 MCG tablet 25 mcg PO QAM Qty: 0 RF: 0 quetiapine [Seroquel] 100 mg Tablet 100 mg PO DAILY RF: 0 Referrals: [facility] [Provider Group] <Leander Mcpherson DO - Last Filed: 11/30/17 20:26> Cosign ED Attending Gabriela Attestation: I was immediately available in the department for consultation. Documentation has been reviewed. I agree with assessment and plan.
[2017-11-28 17:00] VITALS: BP 127/74; PULSE 78; RESP 14; O2SAT 94
[2017-11-28] MEDS: HYDROMORPHONE 0.5 MG INJ IV (17:38)
[2017-11-28 18:14] VITALS: BP 132/83; PULSE 72; TEMP 36.8; O2SAT 96
== END 2017-11-28 18:31 | disposition home or self-care (01) ==
PROVIDERS: Emergency Provider Nurse Practitioner Family
DX: K52.9 Noninfective gastroenteritis and colitis, unspecified (principal); N39.0 Urinary tract infection, site not specified
CPT/HCPCS: 36591; 74177; 80053; 81003; 81015; 81025; 83690; 85025; 87086; 96361; 96374; 96375; 96376; 99283; 99284; J1170; J2405; Q9967

== ENCOUNTER 2018-04-11 13:24 | Emergency (ER) | payer OTHER, MEDICAID, SELFPAY ==
[2018-04-11 13:26] VITALS: BP 128/90; PULSE 69; RESP 15; TEMP 36.7; O2SAT 98; BMI 31.0
[2018-04-11 14:01] LABS: Bacteria Urine Many (>30); Culture Indicated Urine Cult Not Indicated; Mucus Urine 2+ (Negative); RBC Urine 0-1/HPF (0-5/HPF); Squamous Epithelial Cell Urine 5-10 /HPF; WBC Urine 1-5/HPF (0-5/HPF)
--- NOTE | 2018-04-11 15:26 | ED.NAVMDI ---
HPI - Nausea/Vomiting/Diarrhea <SUSANA Ortiz - Last Filed: 04/11/18 18:03> General Chief complaint: Nausea/Vomiting/Diarrhea Stated complaint: CAN'T EAT ANYTHING, THROWING UP Time Seen by Provider: 04/11/18 15:02 Source: patient Mode of arrival: ambulatory Limitations: no limitations History of Present Illness HPI Narrative: pt says she has been vomiting and diarrhea for 3 weeks now MD complaint: nausea, vomiting and diarrhea Onset (ago): week(s) (3) Description of Vomiting: food contents and continuous Description of Diarrhea: watery and continuous Associated Abdominal Pain: No Relieving factors: none Exacerbating factors: eating Related Data Home Medications Medication Instructions Recorded Confirmed loperamide 2 mg PO TID 04/11/18 04/11/18 multivitamin 1 tab PO DAILY 04/11/18 04/11/18 Previous Rx's Medication Instructions Recorded ciprofloxacin HCl [Cipro] 500 mg PO BID #14 tab 04/11/18 ondansetron HCl [Zofran] 4 mg PO Q6-8H PRN #14 tab 04/11/18 Allergies Allergy/AdvReac Type Severity Reaction Status Date / Time Penicillins [PENICILLINS] Allergy Unknown Verified 04/11/18 13:26 lorazepam [From ATIVAN] AdvReac Unknown AGITATION Verified 04/11/18 13:26 Review of Systems <SUSANA Ortiz - Last Filed: 04/11/18 18:03> Review of Systems All systems reviewed & are unremarkable except as noted in HPI and below Constitutional Reports as per HPI and Denies weakness ENT Ears, Nose, Mouth, and Throat: Denies dizziness Cardiovascular Denies chest pain, Denies irregular heart rhythm, Denies lightheadedness, Denies palpitations, Denies dyspnea, Denies dyspnea on exertion and Denies orthopnea Respiratory Denies cough, Denies dyspnea, Denies dyspnea on exertion and Denies wheezing Gastrointestinal Gastrointestinal: Denies abdominal pain, Denies melena, Denies constipation, Reports diarrhea, Reports nausea, Reports vomiting and Denies hematemesis Genitourinary Denies abnormal menses, Denies abnormal vaginal bleeding, Denies hematuria, Denies urinary frequency, Denies flank pain, Denies urinary incontinence, Denies urinary urgency and Denies vaginal discharge Integumentary/Breasts Denies pruritus, Denies erythema, Denies rash and Denies wounds Neurologic Denies confusion, Denies dizziness and Denies weakness Psychiatric Denies anxiety, Denies confusion, Denies depression, Denies homicidal ideation and Denies suicidal ideation Endocrine Denies palpitations Allergic/Immunologic Denies wheezing Exam <SUSANA Ortiz - Last Filed: 04/11/18 18:03> Initial Vital Signs Initial Vital Signs: Vital Signs Temperature 98.1 F 04/11/18 13:26 Pulse Rate 69 04/11/18 13:26 Respiratory Rate 15 04/11/18 13:26 Blood Pressure 128/90 04/11/18 13:26 Pulse Oximetry 98 04/11/18 13:26 Const General: cooperative, healthy appearing, comfortable and well developed Nutritional Appearance: average body habitus Orientation: alert, awake and oriented x3 Resp Effort & Inspection: normal respiratory effort and able to speak in complete sentences Auscultation: clear to auscultation bilaterally Cardio Rate: regular rate Rhythm: regular rhythm Heart Sounds: S1 normal and S2 normal GI Inspection: normal to inspection Palpation: soft and No tender Auscultation: normal bowel sounds Back/Spine/Pelvis Cervical Spine: cervical ROM normal Thoracic/Lumbar Spine: thoraco-lumbar ROM limited Skin General: no rashes or lesions noted, elasticity normal, turgor normal and warm Neuro General: alert, awake and oriented x3 Cranial Nerves: CN's II-XI intact bilaterally Cognition: normal cognition Speech: speech normal Motor: muscle tone normal throughout Sensory Exam: no sensory deficits noted Psych Appearance: grossly normal and well kempt Mental Status: mental status grossly normal Speech and Movement: speech and movement normal Mood: congruent mood Affect: normal affect Attitude: cooperative Thought Process: normal Thought Content: normal Judgment: judgment good <Caryn York DO - Last Filed: 04/12/18 20:49> Initial Vital Signs Initial Vital Signs: Vital Signs Temperature 98.1 F 04/11/18 13:26 Pulse Rate 69 04/11/18 13:26 Respiratory Rate 15 04/11/18 13:26 Blood Pressure 128/90 04/11/18 13:26 Pulse Oximetry 98 04/11/18 13:26 Course <SUSANA Ortiz - Last Filed: 04/11/18 18:03> Course Narrative: results and dc plan discussed, and pt telling me feels better and the meds and ivf, asked for diflucan pill Orders Ordered: Discontinued Medications Sodium Chloride (Normal Saline 0.9%) 1,000 mls @ 1,000 mls/hr IV BOLUS ONE Stop: 04/11/18 16:31 Last Admin: 04/11/18 15:47 Dose: 1,000 mls/hr Ketorolac Tromethamine (Toradol) 30 mg IV NOW ONE Stop: 04/11/18 15:33 Last Admin: 04/11/18 15:47 Dose: 30 mg Ondansetron HCl (Zofran) 4 mg IV NOW ONE Stop: 04/11/18 15:33 Last Admin: 04/11/18 15:50 Dose: 4 mg Vital Signs - 8 hr 04/11/18 13:26 04/11/18 17:14 Temperature 98.1 F Pulse Rate 69 74 Respiratory Rate 15 16 Blood Pressure 128/90 Blood Pressure [Left Arm] 117/68 Pulse Oximetry 98 97 <Caryn York DO - Last Filed: 04/12/18 20:49> Orders Ordered: Discontinued Medications Sodium Chloride (Normal Saline 0.9%) 1,000 mls @ 1,000 mls/hr IV BOLUS ONE Stop: 04/11/18 16:31 Last Admin: 04/11/18 15:47 Dose: 1,000 mls/hr Ketorolac Tromethamine (Toradol) 30 mg IV NOW ONE Stop: 04/11/18 15:33 Last Admin: 04/11/18 15:47 Dose: 30 mg Ondansetron HCl (Zofran) 4 mg IV NOW ONE Stop: 04/11/18 15:33 Last Admin: 04/11/18 15:50 Dose: 4 mg Vital Signs - 8 hr 04/11/18 13:26 04/11/18 17:14 Temperature 98.1 F Pulse Rate 69 74 Respiratory Rate 15 16 Blood Pressure 128/90 Blood Pressure [Left Arm] 117/68 Pulse Oximetry 98 97 MDM - Nausea/Vomiting/Diarrhea <SUSANA Ortiz - Last Filed: 04/11/18 18:03> Lab Data Result diagrams: 04/11/18 15:40 04/11/18 15:40 Lab Results 04/11/18 04/11/18 04/11/18 Range/Units 13:33 15:40 15:40 WBC 8.2 (4.5-11.0) X10^3/uL RBC 4.58 (4.0-5.2) X10^6/uL Hgb 15.7 (12.0-16.0) g/dL Hct 45.2 (36-46) % MCV 98.6 (80-100) fL MCH 34.2 H (26-34) PG MCHC 34.7 (30-36) % RDW 12.8 (11.6-14.8) % Plt Count 282 (150-400) X10^3/uL Neut % (Auto) 53.8 (50-75) % Lymph % (Auto) 34.2 (25-40) % [place] % (Auto) 10.6 (3-14) % Eos % (Auto) 0.7 L (2-4) % Baso % (Auto) 0.7 (0-2) % Neut # (Auto) 4400 (2311-0521) /uL Sodium 144 (137-145) mmol/L Potassium 3.8 (3.4-5.1) mmol/L Chloride 105 (98-107) mmol/L Carbon Dioxide 26 (22-32) mmol/L BUN 8 (7-17) mg/dL Creatinine 0.60 (0.52-1.04) mg/dL Estimated GFR > 60.0 (>60) mL/min BUN/Creatinine Ratio 13.3 (6-22) Glucose 84 (70-100) mg/dL Calcium 9.2 (8.4-10.2) mg/dL Total Bilirubin 0.9 (0.2-1.3) mg/dL AST 30 (14-36) IU/L ALT 41 (9-52) IU/L Alkaline Phosphatase 60 (38-126) U/L Total Protein 7.3 (6.3-8.2) g/dL Albumin 4.5 (3.5-5.0) g/dL Globulin 2.8 (1.7-4.1) g/dL Albumin/Globulin Ratio 1.6 (1.0-2.8) Amylase 55 (30-110) U/L Lipase 83 (23-300) U/L Urine RBC 0-1/hpf D (0-5/HPF) Urine WBC 1-5/hpf (0-5/HPF) Ur Squamous Epith Cells 5-10 /hpf H Urine Bacteria Many (>30) H (None) Urine Mucus 2+ H (Negative) Ur Culture Indicated? Cult not indicated Micro UA Comment Not Reportable Urine Opiates Screen (Negative) Ur Oxycodone Screen (Negative) Urine Methadone Screen (Negative) Ur Barbiturates Screen (Negative) U Tricyclic Antidepress (Negative) Ur Phencyclidine Scrn (Negative) Ur Amphetamines Screen (Negative) U Methamphetamines Scrn (Negative) Ur MDMA Scrn (Ecstasy) (Negative) U Benzodiazepines Scrn (Negative) Urine Cocaine Screen (Negative) U Marijuana (THC) Screen (Negative) 04/11/18 Range/Units 15:45 WBC (4.5-11.0) X10^3/uL RBC (4.0-5.2) X10^6/uL Hgb (12.0-16.0) g/dL Hct (36-46) % MCV (80-100) fL MCH (26-34) PG MCHC (30-36) % RDW (11.6-14.8) % Plt Count (150-400) X10^3/uL Neut % (Auto) (50-75) % Lymph % (Auto) (25-40) % [place] % (Auto) (3-14) % Eos % (Auto) (2-4) % Baso % (Auto) (0-2) % Neut # (Auto) (7261-5163) /uL Sodium (137-145) mmol/L Potassium (3.4-5.1) mmol/L Chloride (98-107) mmol/L Carbon Dioxide (22-32) mmol/L BUN (7-17) mg/dL Creatinine (0.52-1.04) mg/dL Estimated GFR (>60) mL/min BUN/Creatinine Ratio (6-22) Glucose (70-100) mg/dL Calcium (8.4-10.2) mg/dL Total Bilirubin (0.2-1.3) mg/dL AST (14-36) IU/L ALT (9-52) IU/L Alkaline Phosphatase (38-126) U/L Total Protein (6.3-8.2) g/dL Albumin (3.5-5.0) g/dL Globulin (1.7-4.1) g/dL Albumin/Globulin Ratio (1.0-2.8) Amylase (30-110) U/L Lipase (23-300) U/L Urine RBC (0-5/HPF) Urine WBC (0-5/HPF) Ur Squamous Epith Cells Urine Bacteria (None) Urine Mucus (Negative) Ur Culture Indicated? Micro UA Comment Urine Opiates Screen Negative (Negative) Ur Oxycodone Screen Negative (Negative) Urine Methadone Screen Negative (Negative) Ur Barbiturates Screen Negative (Negative) U Tricyclic Antidepress Negative (Negative) Ur Phencyclidine Scrn Negative (Negative) Ur Amphetamines Screen Negative (Negative) U Methamphetamines Scrn Negative (Negative) Ur MDMA Scrn (Ecstasy) Negative (Negative) U Benzodiazepines Scrn Negative (Negative) Urine Cocaine Screen Negative (Negative) U Marijuana (THC) Screen Positive H (Negative) Point of Care Testing Test Results Negative Urine Dip Bedside Urine Glucose Negative Bedside Urine Bilirubin - Negative Bedside Urine Ketone +/- 5 Urine Specific [place] 1.025 Bedside Urine Occult Blood +/- Bedside Urine pH 6.0 Bedside Urine Protein +/- 15 Bedside Urine Urobilinogen - Negative Bedside Urine Nitrite - Negative Bedside Urine Leukocytes - Negative Esterase <Caryn York, DO - Last Filed: 04/12/18 20:49> Lab Data Lab Results 04/11/18 04/11/18 04/11/18 Range/Units 13:33 15:40 15:40 WBC 8.2 (4.5-11.0) X10^3/uL RBC 4.58 (4.0-5.2) X10^6/uL Hgb 15.7 (12.0-16.0) g/dL Hct 45.2 (36-46) % MCV 98.6 (80-100) fL MCH 34.2 H (26-34) PG MCHC 34.7 (30-36) % RDW 12.8 (11.6-14.8) % Plt Count 282 (150-400) X10^3/uL Neut % (Auto) 53.8 (50-75) % Lymph % (Auto) 34.2 (25-40) % [place] % (Auto) 10.6 (3-14) % Eos % (Auto) 0.7 L (2-4) % Baso % (Auto) 0.7 (0-2) % Neut # (Auto) 4400 (6725-0816) /uL Sodium 144 (137-145) mmol/L Potassium 3.8 (3.4-5.1) mmol/L Chloride 105 (98-107) mmol/L Carbon Dioxide 26 (22-32) mmol/L BUN 8 (7-17) mg/dL Creatinine 0.60 (0.52-1.04) mg/dL Estimated GFR > 60.0 (>60) mL/min BUN/Creatinine Ratio 13.3 (6-22) Glucose 84 (70-100) mg/dL Calcium 9.2 (8.4-10.2) mg/dL Total Bilirubin 0.9 (0.2-1.3) mg/dL AST 30 (14-36) IU/L ALT 41 (9-52) IU/L Alkaline Phosphatase 60 (38-126) U/L Total Protein 7.3 (6.3-8.2) g/dL Albumin 4.5 (3.5-5.0) g/dL Globulin 2.8 (1.7-4.1) g/dL Albumin/Globulin Ratio 1.6 (1.0-2.8) Amylase 55 (30-110) U/L Lipase 83 (23-300) U/L Urine RBC 0-1/hpf D (0-5/HPF) Urine WBC 1-5/hpf (0-5/HPF) Ur Squamous Epith Cells 5-10 /hpf H Urine Bacteria Many (>30) H (None) Urine Mucus 2+ H (Negative) Ur Culture Indicated? Cult not indicated Micro UA Comment Not Reportable Urine Opiates Screen (Negative) Ur Oxycodone Screen (Negative) Urine Methadone Screen (Negative) Ur Barbiturates Screen (Negative) U Tricyclic Antidepress (Negative) Ur Phencyclidine Scrn (Negative) Ur Amphetamines Screen (Negative) U Methamphetamines Scrn (Negative) Ur MDMA Scrn (Ecstasy) (Negative) U Benzodiazepines Scrn (Negative) Urine Cocaine Screen (Negative) U Marijuana (THC) Screen (Negative) 04/11/18 Range/Units 15:45 WBC (4.5-11.0) X10^3/uL RBC (4.0-5.2) X10^6/uL Hgb (12.0-16.0) g/dL Hct (36-46) % MCV (80-100) fL MCH (26-34) PG MCHC (30-36) % RDW (11.6-14.8) % Plt Count (150-400) X10^3/uL Neut % (Auto) (50-75) % Lymph % (Auto) (25-40) % [place] % (Auto) (3-14) % Eos % (Auto) (2-4) % Baso % (Auto) (0-2) % Neut # (Auto) (4014-4075) /uL Sodium (137-145) mmol/L Potassium (3.4-5.1) mmol/L Chloride (98-107) mmol/L Carbon Dioxide (22-32) mmol/L BUN (7-17) mg/dL Creatinine (0.52-1.04) mg/dL Estimated GFR (>60) mL/min BUN/Creatinine Ratio (6-22) Glucose (70-100) mg/dL Calcium (8.4-10.2) mg/dL Total Bilirubin (0.2-1.3) mg/dL AST (14-36) IU/L ALT (9-52) IU/L Alkaline Phosphatase (38-126) U/L Total Protein (6.3-8.2) g/dL Albumin (3.5-5.0) g/dL Globulin (1.7-4.1) g/dL Albumin/Globulin Ratio (1.0-2.8) Amylase (30-110) U/L Lipase (23-300) U/L Urine RBC (0-5/HPF) Urine WBC (0-5/HPF) Ur Squamous Epith Cells Urine Bacteria (None) Urine Mucus (Negative) Ur Culture Indicated? Micro UA Comment Urine Opiates Screen Negative (Negative) Ur Oxycodone Screen Negative (Negative) Urine Methadone Screen Negative (Negative) Ur Barbiturates Screen Negative (Negative) U Tricyclic Antidepress Negative (Negative) Ur Phencyclidine Scrn Negative (Negative) Ur Amphetamines Screen Negative (Negative) U Methamphetamines Scrn Negative (Negative) Ur MDMA Scrn (Ecstasy) Negative (Negative) U Benzodiazepines Scrn Negative (Negative) Urine Cocaine Screen Negative (Negative) U Marijuana (THC) Screen Positive H (Negative) Point of Care Testing Test Results Negative Urine Dip Bedside Urine Glucose Negative Bedside Urine Bilirubin - Negative Bedside Urine Ketone +/- 5 Urine Specific [place] 1.025 Bedside Urine Occult Blood +/- Bedside Urine pH 6.0 Bedside Urine Protein +/- 15 Bedside Urine Urobilinogen - Negative Bedside Urine Nitrite - Negative Bedside Urine Leukocytes - Negative Esterase Discharge Plan Departure Patient Disposition: Home Clinical Impression: Gastroenteritis, UTI (urinary tract infection) Discharge Date/Time: 04/11/18 17:42 Interventions: ED Discharge Assessment Last Done: 04/11/18 17:41 Instructions: DI for Viral Gastroenteritis -- Adult, DI for Urinary Tract Infection (UTI), DI for Bacterial Gastroenteritis -- Adult Prescriptions: New ondansetron HCl [Zofran] 4 mg tablet 4 mg PO Q6-8H PRN (Reason: nausea and vomiting) Qty: 14 RF: 0 ciprofloxacin HCl [Cipro] 500 mg tablet 500 mg PO BID Qty: 14 RF: 0 No Action loperamide 2 mg capsule 2 mg PO TID RF: 0 multivitamin Tablet 1 tab PO DAILY RF: 0 Referrals: Maxi Galvez DO [Primary Care Provider] - (in 2-3 days) <Caryn York DO - Last Filed: 04/12/18 20:49> Cosign ED Attending Cosignature Attestation: I was immediately available in the department for consultation. This documentation has been reviewed and I agree with assessment. Supervised by Caryn York DO
--- NOTE | 2018-04-11 15:33 | DI.CT.S_ITS ---
PROCEDURE: CT ABDOMEN PELVIS W CON INDICATIONS: abd pain TECHNIQUE: After the administration of intravenous contrast, 5 mm thick sections acquired from the diaphragm to the symphysis. 5 mm coronal and sagittal reformats were acquired. For radiation dose reduction, the following was used: automated exposure control, adjustment of mA and/or kV according to patient size. COMPARISON: [facility], CT, ABDOMEN/PELVIS WITH CONTRAST, 05/30/2017, 22:33. [facility], CR, ABDOMEN ACUTE SERIES, 05/30/2017, 21:18. [facility], CT, CT ABDOMEN PELVIS W CON, 11/28/2017, 16:31. FINDINGS: Image quality: Excellent. ABDOMEN: Lung bases: A 9 mm calcified nodule is present in the right middle lobe, unchanged, compared with an old granuloma. Lung bases are otherwise clear. Heart size is normal. Solid organs: There is diffuse hepatic fatty infiltration. Liver is normal in size and enhancement. Gallbladder is surgically absent. Biliary system is non dilated. Pancreas enhances normally. Spleen is normal in size and enhancement. No adrenal nodules. Kidneys demonstrate normal size and enhancement, without hydronephrosis. Peritoneum and bowel: Bowel loops demonstrate normal wall thickness and caliber. Normal appendix. No free fluid or air. Nodes and vessels: No retroperitoneal or mesenteric adenopathy by size criteria. Aorta and inferior vena cava are normal in size. Miscellaneous: No ventral hernias. PELVIS: Genitourinary: Bladder wall thickness is normal. There is an IUD in uterus. Miscellaneous: No inguinal hernias or adenopathy. Bones: No suspicious bony lesions. No vertebral body compression fractures. IMPRESSION: 1. No acute intra-abdominal process. 2. Hepatic steatosis. 3. A 9 mm calcified granuloma in the right middle lobe. Dictated by: Andrei Sanchez M.D. on 04/11/2018 at 16:11 Approved by: Andrei Sanchez M.D. on 04/11/2018 at 16:21
[2018-04-11] MEDS: KETOROLAC 60 MG/2 ML VIAL 30 MG IV (15:47)
[2018-04-11] MEDS: SODIUM CHLORIDE 0.9% 1,000 ML 1000 ML IV (15:47)
[2018-04-11 15:49] LABS: Add Manual Diff / Slide Review NO; Basophils Percent Auto 0.7 % (0-2); Eosinophils Percent Auto 0.7 % (2-4); Hematocrit 45.2 % (36-46); Hemoglobin 15.7 g/dL (12.0-16.0); Lymphocytes Percent Auto 34.2 % (25-40); Mean Corpuscular HGB Conc 34.7 % (30-36); Mean Corpuscular Hemoglobin 34.2 PG (26-34); Mean Corpuscular Volume 98.6 fL (80-100); Monocytes Percent Auto 10.6 % (3-14); Neutrophils Absolute Auto 4400 /uL (3000-5900); Neutrophils Percent Auto 53.8 % (50-75); Platelet Count 282 X10^3/uL (150-400); Red Blood Cell Count 4.58 X10^6/uL (4.0-5.2); Red Cell Distribution Width 12.8 % (11.6-14.8); White Blood Cell Count 8.2 X10^3/uL (4.5-11.0)
[2018-04-11] MEDS: ONDANSETRON 4 MG/2 ML INJ IV (15:50)
[2018-04-11 15:58] LABS: Urine Amphetamines Negative (Negative); Urine Barbiturates Negative (Negative); Urine Benzodiazepines Negative (Negative); Urine Cocaine Negative (Negative); Urine MDMA Negative (Negative); Urine Methadone Negative (Negative); Urine Methamphetamines Negative (Negative); Urine Morphine/Opi cutoff 2000 Negative (Negative); Urine Oxycodone Negative (Negative); Urine Phencyclidine Negative (Negative); Urine Tetrahydrocannabinol Positive (Negative); Urine Tricyclic Antidepressant Negative (Negative)
[2018-04-11 16:03] LABS: Alanine Aminotransferase 41 IU/L (9-52); Albumin 4.5 g/dL (3.5-5.0); Albumin Globulin Ratio 1.6 (1.0-2.8); Alkaline Phosphatase 60 U/L (38-126); Amylase 55 U/L (30-110); Aspartate Aminotransferase 30 IU/L (14-36); BUN Creatinine Ratio 13.3 (6-22); Bilirubin Total 0.9 mg/dL (0.2-1.3); Blood Urea Nitrogen 8 mg/dL (7-17); Calcium 9.2 mg/dL (8.4-10.2); Carbon Dioxide 26 mmol/L (22-32); Chloride 105 mmol/L (98-107); Estimated Glomerular Filt Rate > 60.0 mL/min (>60); Globulin 2.8 g/dL (1.7-4.1); Glucose 84 mg/dL (70-100); HEMOLYSIS < 15 (0-50); Lipase 83 U/L (23-300); Potassium 3.8 mmol/L (3.4-5.1); Sodium 144 mmol/L (137-145); Total Protein 7.3 g/dL (6.3-8.2)
[2018-04-11 17:14] VITALS: BP 117/68; PULSE 74; RESP 16; O2SAT 97
--- NOTE | 2018-04-18 08:29 | PC.NURSE ---
late entry/ IV fluids 1000cc infused. dc at 1700/
== END 2018-04-11 17:42 | disposition home or self-care (01) ==
PROVIDERS: Emergency Medicine; Emergency Provider Nurse Practitioner; PCP Family Medicine Adult Medicine
DX: K52.9 Noninfective gastroenteritis and colitis, unspecified (principal); N39.0 Urinary tract infection, site not specified
CPT/HCPCS: 36591; 74177; 80053; 80305; 81003; 81015; 81025; 82150; 83690; 85025; 96361; 96374; 96375; 99282; 99285; J1885; J2405; Q9967

== ENCOUNTER 2018-04-20 20:07 | Emergency (ER) | payer OTHER, MEDICAID, SELFPAY ==
[2018-04-20 20:18] VITALS: BP 125/85; PULSE 86; RESP 15; TEMP 36.7; O2SAT 97; BMI 30.1
[2018-04-20 20:47] LABS: Bacteria Urine Many (>30); RBC Urine 0-1/HPF (0-5/HPF); Squamous Epithelial Cell Urine 10-30 /HPF; WBC Urine 0-1/HPF (0-5/HPF)
--- NOTE | 2018-04-20 20:59 | ED.NAVMDI ---
HPI - Nausea/Vomiting/Diarrhea General Chief complaint: Nausea/Vomiting/Diarrhea Stated complaint: NAUSEA, VOMITING, HAD SOME BLOOD Time Seen by Provider: 04/20/18 20:16 Source: patient Mode of arrival: ambulatory Limitations: no limitations History of Present Illness HPI Narrative: 32-year-old female here for evaluation of nausea and vomiting and diarrhea. She states that this has been going on for some time now. She was seen here in the emergency department several days ago was diagnosed with a urinary tract infection. Sent home with Zofran and Cipro. She was not having any urinary symptoms the time. She has completed that course of antibiotics. She states she had a CT scan of her abdomen done at that time was told everything was normal. She states she does have a history of a ?obstruction ?never had any abdominal surgeries. Did have a right inguinal hernia repair as a child. Has been in contact with her primary care doctor but has not heard back from him. Is waiting for referral to see GI. He is here because she states she is vomiting with ingestion of any type of oral intake. Related Data Home Medications Medication Instructions Recorded Confirmed loperamide 2 mg PO TID 04/11/18 04/11/18 multivitamin 1 tab PO DAILY 04/11/18 04/11/18 Previous Rx's Medication Instructions Recorded ciprofloxacin HCl [Cipro] 500 mg PO BID #14 tab 04/11/18 ondansetron HCl [Zofran] 4 mg PO Q6-8H PRN #14 tab 04/11/18 ondansetron HCl [Zofran] 4 mg PO Q6-8H PRN #20 tab 04/20/18 Allergies Allergy/AdvReac Type Severity Reaction Status Date / Time Penicillins [PENICILLINS] Allergy Unknown Verified 04/20/18 20:18 lorazepam [From ATIVAN] AdvReac Unknown AGITATION Verified 04/20/18 20:18 Review of Systems Constitutional Denies fever(s) and Denies headache(s) ENT Ears, Nose, Mouth, and Throat: Denies headache(s) Cardiovascular Denies chest pain and Denies dyspnea Respiratory Denies dyspnea Gastrointestinal Gastrointestinal: Reports abdominal pain, Reports diarrhea, Reports nausea and Reports vomiting Genitourinary Denies dysuria Integumentary/Breasts Denies lesions and Denies rash Neurologic Denies headache(s) Hematologic/Lymphatic Denies easy bleeding and Denies easy bruising [facility] Medical History Urinary tract infection (Acute) Surgical History H/O inguinal hernia repair (Acute) Social History Smoking Status: Former smoker Exam Initial Vital Signs Initial Vital Signs: Vital Signs Temperature 98.1 F 04/20/18 20:18 Pulse Rate 86 04/20/18 20:18 Respiratory Rate 15 04/20/18 20:18 Blood Pressure 125/85 04/20/18 20:18 Pulse Oximetry 97 04/20/18 20:18 Const General: cooperative, healthy appearing, comfortable, well developed, well groomed and No acute distress Orientation: alert, awake and oriented x3 HENMT Head: normal to inspection and normocephalic Resp Effort & Inspection: normal respiratory effort Auscultation: clear to auscultation bilaterally Cardio Rate: regular rate Rhythm: regular rhythm GI Inspection: non-distended Palpation: soft, No firm, No guarding, No rigid and tender (Diffuse) Back/Spine/Pelvis Back: No CVA tenderness Skin Lesions: no lesions Rashes: no rashes Neuro General: alert, awake and oriented x3 Cognition: normal cognition Speech: speech normal Extrem General: normal to inspection and capillary refill normal Psych Appearance: grossly normal and well kempt Course Orders Ordered: ED Orders 04/20/18 20:22 Urine Microscopic Stat 04/20/18 21:34 Complete Blood Count AUTO DIFF Stat Comprehensive Metabolic Panel Stat Lipase Stat 04/20/18 21:42 CT abdomen pelvis w con Stat Discontinued Medications Sodium Chloride (Normal Saline 0.9%) 1,000 mls @ 1,000 mls/hr IV BOLUS ONE Stop: 04/20/18 21:57 Last Admin: 04/20/18 21:59 Dose: 1,000 mls/hr Ondansetron HCl (Zofran) 4 mg IV NOW ONE Stop: 04/20/18 22:48 Last Admin: 04/20/18 22:52 Dose: 4 mg Vital Signs - 8 hr 04/20/18 20:18 Temperature 98.1 F Pulse Rate 86 Respiratory Rate 15 Blood Pressure 125/85 Pulse Oximetry 97 MDM - Nausea/Vomiting/Diarrhea Lab Data Attestation: I reviewed the patient's lab results. Result diagrams: 04/20/18 21:34 04/20/18 21:34 Lab Results 04/20/18 04/20/18 04/20/18 Range/Units 20:22 21:34 21:34 WBC 8.4 (4.5-11.0) X10^3/uL RBC 4.43 (4.0-5.2) X10^6/uL Hgb 15.5 (12.0-16.0) g/dL Hct 43.4 (36-46) % MCV 97.9 (80-100) fL MCH 35.0 H (26-34) PG MCHC 35.7 (30-36) % RDW 12.8 (11.6-14.8) % Plt Count 276 (150-400) X10^3/uL Neut % (Auto) 57.8 (50-75) % Lymph % (Auto) 30.4 (25-40) % [place] % (Auto) 10.8 (3-14) % Eos % (Auto) 0.5 L (2-4) % Baso % (Auto) 0.5 (0-2) % Neut # (Auto) 4800 (8496-6200) /uL Sodium 144 (137-145) mmol/L Potassium 4.0 (3.4-5.1) mmol/L Chloride 103 (98-107) mmol/L Carbon Dioxide 28 (22-32) mmol/L BUN 8 (7-17) mg/dL Creatinine 0.70 (0.52-1.04) mg/dL Estimated GFR > 60.0 (>60) mL/min BUN/Creatinine Ratio 11.4 (6-22) Glucose 85 (70-100) mg/dL Calcium 9.3 (8.4-10.2) mg/dL Total Bilirubin 0.8 (0.2-1.3) mg/dL AST 29 (14-36) IU/L ALT 39 (9-52) IU/L Alkaline Phosphatase 53 (38-126) U/L Total Protein 7.4 (6.3-8.2) g/dL Albumin 4.6 (3.5-5.0) g/dL Globulin 2.8 (1.7-4.1) g/dL Albumin/Globulin Ratio 1.6 (1.0-2.8) Lipase 99 (23-300) U/L Urine RBC 0-1/hpf (0-5/HPF) Urine WBC 0-1/hpf (0-5/HPF) Ur Squamous Epith Cells 10-30 /hpf H Urine Bacteria Many (>30) H (None) Ur Culture Indicated? Not Reportable Micro UA Comment Not Reportable Point of Care Testing Test Results Negative Urine Dip Bedside Urine Glucose Negative Bedside Urine Bilirubin - Negative Bedside Urine Ketone +++ 80 Urine Specific [place] 1.030 Bedside Urine Occult Blood + Bedside Urine pH 6.0 Bedside Urine Protein + 30 Bedside Urine Urobilinogen - Negative Bedside Urine Nitrite - Negative Bedside Urine Leukocytes - Negative Esterase Imaging Data CT scan - abdomen: Radiologist's impression: No acute intra-abdominal/intrapelvic processes identified. Fatty infiltration of liver. Cholecystectomy. Normal appendix. Intrauterine conception device MDM Narrative Medical decision making narrative: Patient's labs unremarkable. Does have ketones in her urine. She was given fluids for this. No signs of urinary tract infection. No white blood cell count. CT scan is negative for acute pathology. She denies any urinary symptoms or vaginal symptoms. No indication for antibiotics. Will send home with more the Zofran. She was informed that this medication is to prevent the vomiting and may not take the nausea completely away. Informed her that would not be unreasonable to start a medication such as Zantac or Nexium. Informed her that she needed to talk with her primary doctor about a referral to see GI. She was given return precautions. She expressed understanding and agreement with plan. Discharge Plan Departure Patient Disposition: Home Clinical Impression: Nausea & vomiting Instructions: Nausea (Alternative Therapy), Nausea and Vomiting-Adult Activity Restrictions/Additional Instructions: Recommend you contact your primary doctor to discuss the indications for referral to see a virology teacher. Recommend you take small sips of fluid over longer periods of time. I would also recommend that you start a medication such as Zantac or the generic version of this medication like we discussed. Return to the emergency department for any new or worsening symptoms Prescriptions: New ondansetron HCl [Zofran] 4 mg tablet 4 mg PO Q6-8H PRN (Reason: nausea and vomiting) Qty: 20 RF: 0 No Action loperamide 2 mg capsule 2 mg PO TID RF: 0 multivitamin Tablet 1 tab PO DAILY RF: 0 ondansetron HCl [Zofran] 4 mg tablet 4 mg PO Q6-8H PRN (Reason: nausea and vomiting) Qty: 14 RF: 0 ciprofloxacin HCl [Cipro] 500 mg tablet 500 mg PO BID Qty: 14 RF: 0
[2018-04-20 21:42] LABS: Add Manual Diff / Slide Review NO; Basophils Percent Auto 0.5 % (0-2); Eosinophils Percent Auto 0.5 % (2-4); Hematocrit 43.4 % (36-46); Hemoglobin 15.5 g/dL (12.0-16.0); Lymphocytes Percent Auto 30.4 % (25-40); Mean Corpuscular HGB Conc 35.7 % (30-36); Mean Corpuscular Volume 97.9 fL (80-100); Monocytes Percent Auto 10.8 % (3-14); Neutrophils Absolute Auto 4800 /uL (3000-5900); Neutrophils Percent Auto 57.8 % (50-75); Platelet Count 276 X10^3/uL (150-400); Red Blood Cell Count 4.43 X10^6/uL (4.0-5.2); Red Cell Distribution Width 12.8 % (11.6-14.8); White Blood Cell Count 8.4 X10^3/uL (4.5-11.0)
--- NOTE | 2018-04-20 21:42 | DI.CT.S_ITS ---
PROCEDURE: CT ABDOMEN PELVIS W CON INDICATIONS: Abdominal pain history of obstruction TECHNIQUE: After the administration of intravenous contrast, 5 mm thick sections acquired from the diaphragm to the symphysis. 5 mm coronal and sagittal reformats were acquired. For radiation dose reduction, the following was used: automated exposure control, adjustment of mA and/or kV according to patient size. COMPARISON: [facility], CT, CT ABDOMEN PELVIS W CON, 11/28/2017, 16:31. [facility], CT, CT ABDOMEN PELVIS W CON, 04/11/2018, 15:39. FINDINGS: Image quality: Excellent. ABDOMEN: Lung bases: Lung bases are clear. Heart size is normal. Solid organs: There is diffuse hypodensity in liver consistent with hepatic fatty infiltration. Liver is normal in size and enhancement. Gallbladder is surgically absent. Biliary system is non dilated. Pancreas enhances normally. Spleen is normal in size and enhancement. No adrenal nodules. Kidneys demonstrate normal size and enhancement, without hydronephrosis. Peritoneum and bowel: Appendix is normal. Bowel loops demonstrate normal wall thickness and caliber. No free fluid or air. Nodes and vessels: No retroperitoneal or mesenteric adenopathy by size criteria. Aorta and inferior vena cava are normal in size. Miscellaneous: No ventral hernias. PELVIS: Genitourinary: Bladder wall thickness is normal. There is an IUD in uterus. Miscellaneous: No inguinal hernias or adenopathy. Bones: No suspicious bony lesions. No vertebral body compression fractures. IMPRESSION: 1. No acute intra-abdominal process. 2. Hepatic steatosis. 3. Cholecystectomy. 4. IUD in uterus. No significant discrepancy with the [facility] preliminary report. Dictated by: Andrei Sanchez M.D. on 04/21/2018 at 8:01 Approved by: Andrei Sanchez M.D. on 04/21/2018 at 8:04
[2018-04-20 21:52] LABS: Alanine Aminotransferase 39 IU/L (9-52); Albumin 4.6 g/dL (3.5-5.0); Albumin Globulin Ratio 1.6 (1.0-2.8); Alkaline Phosphatase 53 U/L (38-126); Aspartate Aminotransferase 29 IU/L (14-36); BUN Creatinine Ratio 11.4 (6-22); Bilirubin Total 0.8 mg/dL (0.2-1.3); Blood Urea Nitrogen 8 mg/dL (7-17); Calcium 9.3 mg/dL (8.4-10.2); Carbon Dioxide 28 mmol/L (22-32); Chloride 103 mmol/L (98-107); Estimated Glomerular Filt Rate > 60.0 mL/min (>60); Globulin 2.8 g/dL (1.7-4.1); Glucose 85 mg/dL (70-100); HEMOLYSIS < 15 (0-50); Lipase 99 U/L (23-300); Sodium 144 mmol/L (137-145); Total Protein 7.4 g/dL (6.3-8.2)
[2018-04-20] MEDS: SODIUM CHLORIDE 0.9% 1,000 ML 1000 ML IV (21:59)
[2018-04-20] MEDS: ONDANSETRON 4 MG/2 ML INJ IV (22:52)
[2018-04-20] MEDS: ONDANSETRON 4 MG ODT PREPACK 1 BOTTLE MISC (23:36)
[2018-04-20 23:38] VITALS: BP 112/74; PULSE 76; RESP 20; O2SAT 98
== END 2018-04-20 23:41 | disposition home or self-care (01) ==
PROVIDERS: Emergency Provider Emergency Medicine; Family Provider Family Medicine Adult Medicine; PCP Family Medicine Adult Medicine
DX: R11.2 Nausea with vomiting, unspecified (principal)
CPT/HCPCS: 36591; 74177; 80053; 81003; 81015; 81025; 83690; 85025; 96361; 96374; 99283; 99285; J2405; Q9967